=== PATIENT | male | born 1965 | race Caucasian/White ===

== ENCOUNTER 2021-08-20 19:16 | Emergency (ER) | payer OTHER ==
[~2021-08-20] VITALS: Ht 182.9 cm; Wt 109.0 kg
[2021-08-20 19:35] VITALS: BP 156/100
--- NOTE | 2021-08-20 20:41 | PHYS DOC ---
Adult General Chief Complaint Chief Complaint: BACK PAIN OR INJURY [facility] HPI Patient's 56-year-old male, otherwise healthy outside of hypertension who presents with bilateral low back muscle pain. States it started last night before he went to bed but was not too bad and then woke up this morning with an aching dull pain, 8 out of 10 with no radiation. Cannot identify any recent traumas. Denies any recent travel, illnesses, fevers, chest pain, shortness of breath, abdominal pain, nausea, vomiting. Denies any trouble making urine or stool. Denies any blood in his urine or stool. Denies any numbness/weakness/tingling. Able to sit, stand and walk. States he tried to ibuprofen earlier in the day. Did not talk to his primary care physician. Review of Systems Review of Systems Review of systems otherwise unremarkable except noted in HPI Physical Exam Physical Exam Constitutional: Well developed, well nourished, no acute distress, non-toxic appearance. [] HENT: Normocephalic, atraumatic, Eyes: conjunctiva normal, no discharge. [] Neck: Normal range of motion, no tenderness, Cardiovascular:Heart rate regular rhythm, no murmur [] Lungs & Thorax: No respiratory distress Abdomen: no tenderness, Skin: Warm, dry, no erythema, no rash. [] Back: No midline tenderness, step-offs, deformities. Bilateral lumbar paraspinal muscle tenderness and spasm. Lower extremity neurovascular exam intact Extremities: No tenderness, no cyanosis, no clubbing, ROM intact, no edema. [] Neurologic: Alert and oriented X 3, normal motor function, normal sensory function, able to sit, stand and walk, no focal deficits noted. [] Psychologic: Affect normal, judgement normal, mood normal. [] EKG EKG [] Radiology/Procedures Radiology/Procedures [] Heart Score C/O Chest Pain: No Risk Factors: Risk Factors: DM, Current or recent (<one month) smoker, HTN, HLP, family history of CAD, obesity. Risk Scores: Risk Factors: DM, Current or recent (<one month) smoker, HTN, HLP, family history of CAD, obesity. Course & Med Decision Making Course & Med Decision Making Patient is a 56-year-old male who presents with back pain Vital signs notable for hypertension. Physical exam noted above. No focal neurologic deficits appreciated. Given pain medicine and muscle relaxer in the emergency department. Discussed pain management at home. Discussed usual course of back pain. Advised to call primary care physician in the morning to set up a follow-up. Discussed some basic PT at home. Gave return precautions to the ED. Patient grateful, verbalized understanding and agreed with plan of discharge. [] Dragon Disclaimer Dragon Disclaimer This electronic medical record was generated, in whole or in part, using a voice recognition dictation system. Departure Departure: Impression: Primary Impression: Back pain Disposition: HOME / SELF CARE / HOMELESS Condition: STABLE Referrals: ASHU OLEA MD (PCP) Patient Instructions: Back Pain, Adult Additional Instructions: Thank you for coming into the emergency department tonight and allowing us to take care of you. Please read the attached information carefully to go over things we discussed. Please begin a regimen of 1000 mg of Tylenol every 8 hours, 800 mg of ibuprofen every 8 hours and your muscle relaxer every 8 hours. You can also add 50 mg of Benadryl as needed at night for sleep. Please be careful not to drive while taking your Benadryl or muscle relaxers. Please call your primary care physician in the morning to update on your ED visit and set up a follow-up as soon as you can to discuss need for further evaluation and treatment. Please come back with new or concerning symptoms as we discussed. TIFFANY CRUZ MD Aug 20, 2021 20:41
[2021-08-20] MEDS ORDERED: KETOROLAC 60 MG/2 ML VIAL. IM ONE (20:45)
[2021-08-20] MEDS ORDERED: oxyCODONE/APAP 5/325 1 TAB TABLET PO ONE (20:45)
[2021-08-20] MEDS ORDERED: diazePAM 5 MG TABLET. PO ONE (20:45)
[2021-08-20] MEDS ORDERED: KETOROLAC 30 MG/ML VIAL. ONE (20:50)
[2021-08-20] MEDS ORDERED: CYCLOBENZAPRINE 10MG 4TABLET STARTPACK PO ONE ×2 (20:50→21:00)
[2021-08-20] MEDS ORDERED: oxyCODONE/APAP 5/325 1 TAB TABLET ONE (20:51)
[2021-08-20] MEDS ORDERED: diazePAM 5 MG TABLET. ONE (20:51)
[2021-08-20] MEDS ORDERED: KETOROLAC 30 MG/ML VIAL. IM ONE (21:00)
== END 2021-08-20 21:25 | disposition home or self-care (01) ==
LOC: ER 19:16
DX: M54.59 Other low back pain (principal); I10 Essential (primary) hypertension
CPT/HCPCS: 96372; 99284; J1885